=== PATIENT | male | born 1950 | race Caucasian/White ===

== ENCOUNTER → 2020-05-29 11:47 | Outpatient (CLI) | payer OTHER, SELFPAY ==
--- NOTE | ~2020-05-29 | CT_ITS ---
EXAMINATION: CT lung screening DATE: 05/29/2020 12:02 INDICATION: Cigarette smoker. Personal history of tobacco dependence. TECHNIQUE: Computed tomography (CT) of the chest was performed without intravenous contrast. The dose -length product was 50.22 mGy-cm. Automated exposure control and iterative reconstruction technique w ere employed. COMPARISON: CT dated 04/14/2019 FINDINGS: Small pericardial effusion. Heart size normal. No significant pleural effusion. No thoracic lymphadenopathy. Severe emphysema. Stable 4 mm right lower lobe nodule abutting the fissure. Severe emphysema. Stable reticulonodular densities in the right upper lobe without significant interval cullen ge. Stable right lower lobe atelectasis/scarring. No new pulmonary nodules or masses. Stable chronic T11 compression fracture. There are additional compression fractures of the thoracic spine which appe ar chronic as well. There are median sternotomy wires. Complex exophytic right renal mass with periph eral calcification incompletely visualized. Correlation with contrast-enhanced CT or MRI is recommend ed. IMPRESSION: 1. Lung-RADS category 2: Benign appearance or behavior. Continue annual screening with noncontrast lo w-dose chest CT in 12 months. 2: Complex partially calcified exophytic right renal mass partially visualized. Correlation with con trast-enhanced CT or MRI recommended. Reviewed, dictated and finalized at location A. N RELATIONS MANAGER IMPRESSION: 1. Lung-RADS category 2: Benign appearance or behavior. Continue annual screeni ng with noncontrast low-dose chest CT in 12 months. 2: Complex partially calcified exophytic right renal mass partially visualized . Correlation with contrast-enhanced CT or MRI recommended.
== END ==
PROVIDERS: Visit Provider Physician Assistant
DX: Z12.2 Encounter for screening for malignant neoplasm of respiratory organs (principal); F17.210 Nicotine dependence, cigarettes, uncomplicated
CPT/HCPCS: G0297

== ENCOUNTER → 2020-12-30 12:11 | Outpatient (CLI) | payer OTHER, SELFPAY ==
--- NOTE | ~2020-12-30 | DEXA_ITS ---
Bone Density Report Name: Kameron Christie Age: 70 Sex: Male Ethnicity: White Date of : 1950 Indication: osteoporosis; monitoring treatment; height loss; prior fracture; cancer; Referring Provider: MARINA, PANCHO Study: Bone densitometry was performed. Exam Date: December 30, 2020 Accession number: [id number] Bone Density: Region BMD T-score Z-score Classification AP Spine (L1-L4) 0.854 -2.2 -1.3 Osteopenia Femoral Neck (Right) 0.515 -3.1 -1.9 Osteoporosis Total Hip (Right) 0.590 -2.9 -2.3 Osteoporosis World Health Organization criteria for BMD impression classify patients as: Normal (T-score at or above -1.0), Osteopenia (T-score between -1.0 and -2.5), or Osteoporosis (T-score at or below -2.5). 10-year Fracture Risk: FRAX not reported because: Some T-score for Spine Total or Hip Total or Femoral Neck at or below -2.5 Prior hip or vertebral fracture Treated for osteopor Previous Exams: Region Exam Age BMD T-score BMD Change BMD Change Date g/cm2 vs Baseline vs Previous AP Spine(L1-L4) 12/30/2020 70 0.854 -2.2 -0.027* -0.027* 07/27/2017 67 0.882 -1.9 Total Hip(Right) 12/30/2020 70 0.590 -2.9 -0.032* -0.032* 07/27/2017 67 0.622 -2.7 *Denotes significance at 95% confidence level, LSC for AP Spine = 0.022 g/cm2, LSC for Total Hip = 0.027 g/cm2 Clinical Information Provided by Patient: Have had a previous hip or vertebral fracture Has had a low trauma fracture Smokes Is being treated for osteoporosis Has used the following medications: Fosamax (i.e. alendronate), Vitamin D, Calcium, TESTOSTEROINE X 30 YRS Has the following medical conditions: Cancer, COPD, TESTICULAR AND BLADDER CANCER Patient maximum height was 70 Drinks caffeinated beverages Impression: The patient has established osteoporosis, based on the Right Femoral Neck T-score and the existence of a prior fracture. The patient has risk factors, including: smoking, previous fracture. The BMD for the AP Spine(L1-L4) decreased, changing by -0.027 since the last DXA exam. The BMD for the Total Hip(Right) decreased, changing by -0.032 since the last DXA exam. Discussion: SIGNIFICANT BONE LOSS OBSERVED. Adherence to therapy (including calcium and vitamin D intake) should be assessed. If compliance is not a factor, review management and exclusion of secondary causes of bone loss. It is important to ask patients whether they are taking their medications and to encourage continued and appropriate compliance with their osteoporosis therapies t
== END ==
PROVIDERS: PCP Physician Assistant; Visit Provider Physician Assistant
DX: M81.8 Other osteoporosis without current pathological fracture (principal); M85.88 Other specified disorders of bone density and structure, other site
CPT/HCPCS: 77080